=== PATIENT | male | born 1965 | race Two or more races ===

== ENCOUNTER 2019-09-11 17:43 | Emergency (ER) | payer SELFPAY ==
[~2019-09-11] VITALS: Ht 172.7 cm; Wt 89.8 kg
--- NOTE | 2019-09-11 18:02 | NUR ---
PT [facility] [employer] [facility] [employer] [employer]. FRIEND CALLED [phone] BECAUSE HE NEEDS TO GO TO WORK. PT KNOWN FOR ETOH ABUSE. BG 160 IN THE FIELD. PT IS AWAKE AND VERBALLY RESPONSIVE. DENIES ANY PAIN. AWAITING MD MIRANDA.
--- NOTE | 2019-09-11 18:11 | NUR ---
tong schumacher at bedside for eval.
--- NOTE | 2019-09-11 18:16 | NUR ---
pt to radiology for head and c spine ct scan via [facility].
--- NOTE | 2019-09-12 02:17 | NUR ---
Patient discharged to home in stable condition. Written and verbal after care instructions given. Patient verbalizes understanding of instruction. Pt ambualted with steady gait.
[2019-09-12 02:18] VITALS: BP 138/79
== END 2019-09-12 02:19 | disposition home or self-care (01) ==
LOC: ER 17:47
DX: S09.8XXA Other specified injuries of head, initial encounter (principal); F10.129 Alcohol abuse with intoxication, unspecified; Y04.0XXA Assault by unarmed brawl or fight, initial encounter; Y93.89 Activity, other specified; Y92.89 Other specified places as the place of occurrence of the external cause; Y99.8 Other external cause status; Y90.9 Presence of alcohol in blood, level not specified
CPT/HCPCS: 70450; 72125; 99285; L0172